=== PATIENT | male | born 1970 | race Caucasian/White ===

== ENCOUNTER 2024-11-05 21:38 | Emergency (ER) | payer OTHER, SELFPAY ==
--- NOTE | ~2024-11-05 | CT_ITS ---
CLINICAL HISTORY: blunt injury flank CT abdomen and pelvis with contrast Comparison: None Findings: No consolidation or effusion. Unremarkable gallbladder and solid organs. No urolithiasis. No bowel obstruction, pneumoperitoneum, or pneumatosis. sigmoid diverticula are present without diverticulitis. Visualized appendix is normal. No acute fracture. IMPRESSION: No acute findings. This document has been electronically signed by: Joe Randle MD, PHD on 11/06/2024 02:20:45
[2024-11-05 22:02] VITALS: BP 116/83; PULSE 75; RESP 18; TEMP 36.9; O2SAT 97; BMI 26.5
--- NOTE | 2024-11-05 23:03 | ED_ITS ---
HPI - Fall General Chief Complaint: Fall Stated Complaint: Fall at work/ [employer] Time Seen by Provider: 11/05/24 23:03 Source: patient Mode of arrival: ambulatory Limitations: no limitations History of Present Illness ED Provider: HPI Narrative: Apparently patient has slipped on steps yesterday evening and fell backwards hitting 2 x 4 which he broke since then complaining of pain in left lower rib posteriorly which is getting worse today no abdominal pain no nausea no vomiting no hematuria no other injuries has superficial abrasions right 3rd and 4th finger from the fall Related Data Previous Rx's ?Medication ?Instructions ?Recorded cephalexin 500 mg capsule 500 mg PO QID 10 days #40 caps 11/06/24 mupirocin 2 % topical ointment 1 appl topical BID #15 grams 11/06/24 oxycodone 5 mg tablet 5 mg PO Q6H PRN pain #20 tabs 11/06/24 Allergies Allergy/AdvReac Type Severity Reaction Status Date / Time aspirin [ASPIRIN] Allergy Unknown DIFF Verified 11/05/24 22:06 BREATHING ibuprofen [IBUPROFEN] Allergy Unknown DIFF Verified 11/05/24 22:06 BREATHING naproxen [NAPROXEN] Allergy Unknown DIFF Verified 11/05/24 22:06 BREATHING Review of Systems 2 Review of Systems: Yes all other systems are reviewed and are negative PMFSH Social History Social History Smoked in Last 30 Days: No Use of substances other than those prescribed or required for medical reasons: No Advance Directives: No Advance Directives Information Provided: Yes Do you have a plan to hurt others: No Plan Physical Exam 2 Vital Signs: Vital Signs: Last Vital Signs Temp 99.0 F 11/06/24 04:04 Pulse 82 11/06/24 04:04 Resp 12 11/06/24 04:04 BP 117/76 11/06/24 04:04 Pulse Ox 92 11/06/24 04:04 O2 Del Method Room Air 11/06/24 04:04 BMI result Body Mass Index 26.5 Appearance: Alert. Oriented X3. No acute distress. Eyes: No pallor or ENT: Pharynx normal. Oral Mucosa moist Neck: Normal inspection. Neck supple. CVS: Normal heart rate and rhythm. Pulses normal. Respiratory: No respiratory distress. Equal air entry bilateral, no wheezing/rales/rhonchi tenderness left lower ribs+ posteriorly Abdomen: Soft and nontender. Bowel sounds are present, no mass palpable, left CVA tenderness ++ Skin: Skin warm and dry. Normal skin color. Normal skin turgor. Extremities: No lower extremity edema. No calf tenderness right 2nd and 3rd finger with superficial abrasion and flap laceration Neuro: Oriented X 3. No motor deficit. No sensory deficit.No cerebellar signs , cranial nerves II-XII intact Medications Administered Discontinued Medications Generic Name Dose Route Start Last Admin Trade Name Efrenq PRN Reason Stop Dose Admin Bacitracin 1 appl 11/06/24 03:10 11/06/24 03:27 Bacitracin Oint 0.9 Gm Packet TOPICAL 11/06/24 03:11 1 appl ONCE ONE Administration Protocol Cephalexin HCl 500 mg 11/06/24 03:11 11/06/24 03:27 Cephalexin 500 Mg Capsule PO 11/06/24 03:12 500 mg ONCE ONE Administration Diphtheria/Tetanus/Acell Pertussis 0.5 ml 11/06/24 03:17 11/06/24 03:27 Diphth,Pertus(Acell),Tet Adult 0.5 Ml Syringe IM 11/06/24 03:18 0.5 ml .ONCE ONE Administration Iohexol 85 ml 11/06/24 01:00 11/06/24 01:01 Iohexol 350 Mg/Ml 100 Ml Infus..Btl IV 11/06/24 01:01 85 ml ONCE ONE Administration Oxycodone HCl 10 mg 11/06/24 03:10 11/06/24 03:27 Oxycodone Hcl Immed Release 5 Mg Tablet PO 11/06/24 03:11 10 mg ONCE ONE Administration Medical Decision Making Medical Decision Making [facility] Narrative: Patient is status post fall with tenderness left lower ribs posteriorly clinically patient has a rib fracture will do CT abdomen to rule out splenic hematoma CT scan of the abdomen negative for acute likely patient has left lower rib contusion without internal injuries will give pain medications also patient has wound on the right 2nd and 3rd finger with cleaned bacitracin ointment applied will give prophylactic antibiotic Lab Data [facility] Lab Attestation statement: I reviewed the patient's lab results. 11/05/24 23:24 11/05/24 23:24 Labs: Lab Results 04/01/25 Range/Units 23:24 WBC 5.9 (4.8-10.8) X10*3/uL RBC 4.28 L (4.60-5.80) X10*6/uL Hgb 14.3 (14.0-18.0) g/dl Hct 41.5 L (42.0-52.0) % MCV 97.0 (80.0-98.0) fL MCH 33.4 H (27.0-33.0) pg MCHC 34.5 (31.0-36.0) g/dl RDW 11.5 (11.0-16.0) % Plt Count 241 (160-400) X10*3/uL MPV 8.8 L (9.4-12.4) fL Immature Gran % (Auto) 0.2 (0.0-0.4) % Neut % (Auto) 50.1 (45-73) % Lymph % (Auto) 30.2 (20-40) % [place] % (Auto) 13.7 H (2-11) % Eos % (Auto) 5.1 H (0-4) % Baso % (Auto) 0.7 (0-2) % Lymph # (Auto) 1.8 (1.2-4.9) X10*3/uL [place] # (Auto) 0.8 (0.1-1.2) X10*3/uL Eos # (Auto) 0.3 (0.0-0.4) X10*3/uL Baso # (Auto) 0.0 (0.0-0.2) X10*3/uL Abs Immat Gran (auto) 0.01 (0.00-0.03) X10*3/uL Absolute Neuts (auto) 2.9 (2.0-8.3) x10*3/uL Absolute Nucleated RBC 0.000 (0.0-0.012) X10*3/uL Nucleated RBC % (auto) 0.0 (0.0-0.2) /100WBC PT 11.1 (10.9-12.4) SEC INR 1.0 (0.9-1.1) Sodium 140 (135-145) mmol/L Potassium 3.8 (3.3-5.1) mmol/L Chloride 108 (96-108) mmol/L Carbon Dioxide 26 (22-29) mmol/L Anion Gap 10 L (12-20) BUN 10 (9-16) mg/dL Creatinine 0.80 (0.5-1.4) mg/dL Estim Creat Clear Calc 112.4 Estimated GFR > 60 Random Glucose 118 H (60-115) mg/dL Calcium 9.2 (8.4-10.2) mg/dL Total Bilirubin 0.2 (0.0-1.0) mg/dL AST 23 (5-37) U/L ALT 23 (0-40) U/L Alkaline Phosphatase 71 (39-117) U/L Total Protein 6.6 (6.5-8.0) g/dL Albumin 3.8 (3.5-5.0) g/dL Independent Interpretation I performed an independent interpretation of an: CT Scan Interpretation: No acute Radiology Impression Discussion of test interpretation with radiology: I have reviewed the radiologist's reading. Discharge Plan Discharge Clinical Impression: Contusion of rib on left side, Acute post-traumatic wound infection Patient Disposition: Home, Self-Care Instructions: Wound Infection (ED), Rib Contusion (ED) Additional Instructions: You have left lower rib contusion no internal injury or fracture was seen Local care of the wound on right hand as advised Antibiotic as advised for wound infection Pain medication as prescribed Report to the ER if increasing shortness a breath/worsening of the pain Prescriptions: New cephalexin 500 mg capsule 500 mg PO QID 10 Days Qty: 40 0RF oxycodone 5 mg tablet 5 mg PO Q6H PRN (Reason: pain) Qty: 20 0RF Rx Instructions: Partial Fill upon patient request. mupirocin 2 % ointment 1 appl topical BID Qty: 15 0RF Interventions: ED Discharge Assessment Last Done: 11/06/24 04:04 Discharge Date/Time: 11/06/24 04:05 Print Language: Sami
[2024-11-05 23:28] LABS: MANUAL DIFF FLAG NO
[2024-11-05 23:31] LABS: Basophils Percent Auto 0.7 % (0-2); Eosinophils Absolute Auto 0.3 X10*3/uL (0.0-0.4); Eosinophils Percent Auto 5.1 % (0-4); Hematocrit 41.5 % (42.0-52.0); Hemoglobin 14.3 g/dl (14.0-18.0); Imm Gran Abs Auto 0.01 X10*3/uL (0.00-0.03); Imm Gran Pct Auto 0.2 % (0.0-0.4); Lymphocytes Absolute Auto 1.8 X10*3/uL (1.2-4.9); Lymphocytes Percent Auto 30.2 % (20-40); Mean Corpuscular HGB Conc 34.5 g/dl (31.0-36.0); Mean Corpuscular Hemoglobin 33.4 pg (27.0-33.0); Mean Platelet Volume 8.8 fL (9.4-12.4); Monocytes Absolute Auto 0.8 X10*3/uL (0.1-1.2); Monocytes Percent Auto 13.7 % (2-11); Neutrophils Absolute Auto 2.9 x10*3/uL (2.0-8.3); Neutrophils Percent Auto 50.1 % (45-73); Platelet Count 241 X10*3/uL (160-400); Red Blood Count 4.28 X10*6/uL (4.60-5.80); Red Cell Distribution Width 11.5 % (11.0-16.0); White Blood Count 5.9 X10*3/uL (4.8-10.8)
[2024-11-05 23:42] LABS: Prothrombin Time 11.1 SEC (10.9-12.4)
[2024-11-05 23:59] LABS: Alanine Aminotransferase 23 U/L (0-40); Albumin Level 3.8 g/dL (3.5-5.0); Alkaline Phosphatase 71 U/L (39-117); Anion Gap 10 (12-20); Aspartate Amino Transferase 23 U/L (5-37); Bilirubin Total 0.2 mg/dL (0.0-1.0); Blood Urea Nitrogen 10 mg/dL (9-16); Calcium 9.2 mg/dL (8.4-10.2); Carbon Dioxide 26 mmol/L (22-29); Chloride 108 mmol/L (96-108); Creatinine Clr Calc Pharmacy 112.4; Estimated Glomerular Filt Rate > 60; Glucose Random 118 mg/dL (60-115); Potassium 3.8 mmol/L (3.3-5.1); Sodium 140 mmol/L (135-145); Total Protein 6.6 g/dL (6.5-8.0)
[2024-11-06 00:46] VITALS: BP 153/81; PULSE 67; RESP 16; TEMP 36.7; O2SAT 98
[2024-11-06] MEDS: iohexoL 350 MG/ML 100 ML INFUS..BTL 85 ML IV (01:01)
[2024-11-06 02:10] VITALS: BP 117/76; PULSE 82; RESP 12; TEMP 37.2; O2SAT 92
--- OUTSIDE RECORDS SUMMARY | 2024-11-06 02:52 | XMS_ITS | Data Portability ---
Author Organization [place] [facility], Allergy Address [address] [place] [phone] Care Team Providers Care Supervisor Filling And Packing Name Role Phone MONIQUE YEN Primary Care Provider Assessment Encounter Date Assessment Date Assessment LastModified by Organization Details LastModified Time 03/04/2024 03/04/2024 Overall patient doing well with Dupixent. No evidence of recurrent polyps. Asthma under control. He will continue with injections every 3 weeks and follow-up with me in 6 months cindy Not available 03/04/2024 15:55:41 Plan of Treatment Reminders Order Date Submit Date Provider Last Modified By Organization Details Last Modified Time Details Appointments None record ed. Lab None record ed. Referral None record ed. Procedures None record ed. Surgeries None record ed. Imaging None record ed. Medication Orders None record ed. Patient TargetsNo targets recorded. Patient InstructionsNo instructions recorded. Reason for Referral None Reported. Results Created Date Observation Date Name Description Value Unit Range Abnormal Flag Note LastModifiedBy Organization Detail LastModifiedTime 03/27/20 24 01/28/2020 imagi ng/di agnos tic resul t No observ ation record ed. [email or web address] Not Available 05:45:31 Result Notes None recorded. Problems Name Problem SNOMED Code Status Onset Date Resolution Date Notes Provider Name and Address Organization Details Recorded Time Epistaxis Active 2015 Epistaxis ; Note: Date Diagnosed : 05/13/2015 8:41 AM () Not Available [facility] 4 02:57:22 Disorder of nasal sinus 6943458 Active 2015 Perforati on of nasal septum NOS; Note: Date Diagnosed : 07/13/2016 1:42 PM (J34.89) Not Available [facility] 4 02:57:19 Disorder of the nose 09861410 Active 2015 Perforati on of nasal septum NOS; Note: Date Diagnosed : 07/13/2016 1:42 PM (J34.89) Not Available [facility] 4 02:57:19 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; Note: Date Diagnosed : 11/22/2016 3:24 PM (J33.1) Not Available [facility] 4 02:57:19 Long-term current use of anticoagu 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; Note: Date Diagnosed : 05/13/2015 8:42 AM () Not Available [facility] 4 02:57:21 Chronic pansinusi tis 49567895 Active 2016 Chronic pansinusi tis; Note: Date Diagnosed : 11/22/2016 3:24 PM (J32.4) Not Available [facility] 4 02:57:21 Acute serous otitis media of left ear 65194908367 90540 Active 2019 Acute serous otitis media, left ear; Note: Date Diagnosed : 12/16/2019 11:37 AM (H65.02) Not Available [facility] 4 02:57:22 Uncomplic ated moderate persisten t asthma 639689408 Active 2016 Moderate persisten t asthma, uncomplic ated; Note: Date Diagnosed : 03/01/2017 11:08 AM (J45.40) Not Available [facility] 4 02:57:18 Deviated nasal septum 356271295 Active 2015 Deviated nasal septum; Note: Date Diagnosed : 07/13/2016 1:42 PM (J34.2) Not Available [facility] 4 02:57:18 Abnormal auditory perceptio n 23688416 Active 2016 Other abnormal auditory perceptio ns, bilateral ; Note: Date Diagnosed : 05/03/2017 11:31 AM (H93.293) Not Available [facility] 4 02:57:20 Allergy to drug 469684032 Active 2015 Allergy status to analgesic agent status; CMS Risk: moderate risk Note : Date Diagnosed : 05/13/2015 8:43 AM (Z88.6) Not Available [facility] 4 02:57:20 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 343009290 Active 2015 Coagulati on defects: Other hemorrhag ic disorder due to intrinsic circulati ng anticoagu lants, antibodie s, or inhibitor s; Note: Date Diagnosed : 05/13/2015 8:41 AM () Not Available [facility] 4 02:57:19 Chronic rhinitis 57578555 Active 2016 Rhinitis, chronic; Note: Date Diagnosed : 12/07/2016 9:31 AM (472.0) Not Available [facility] 4 02:57:22 Chronic tonsillit is 04391110 Active 2013 Tonsillit is, chronic; CMS Risk: low risk CMS Treatment : new problem (to examiner) : no additiona l workup planned N ote: Date Diagnosed : 4 5:08 PM (474.00) Not Available [facility] 4 02:57:17 Bleeding from nose 287590851 Active 2015 Epistaxis ; Note: Date Diagnosed : 05/13/2015 8:42 AM () Not Available [facility] 4 02:57:17 Sensorine ural hearing loss of bilateral ears 197250663 Active 2016 Sensorine ural hearing loss, bilateral ; Note: Date Diagnosed : 05/03/2017 12:24 PM (H90.3) Not Available [facility] 4 02:57:18 Polyp of nasal cavity 400999895 Active 2015 Polyp of nasal cavity; Note: Date Diagnosed : 07/13/2016 1:42 PM (J33.0) Not Available [facility] 4 02:57:20 Disorder of respirato ry system 34930333 Active 2015 Respirato ry condition s due to other specified external agents; CMS Risk: moderate risk Note : Date Diagnosed : 05/13/2015 8:43 AM (J70.8) Not Available [facility] 4 02:57:19 Follow-up visit Active 2016 Encounter for follow-up examinati on after completed treatment for condition s other than malignant neoplasm; Note: Date Diagnosed : 11/25/2016 12:04 PM (Z09) Not Available [facility] 4 02:57:21 Polyp of nasal cavity and/or nasal sinus 148649124 Active 2023 RINKU MORENO MD [address] [facility] [place], [place], [address] , [facility] - [facility] 4 15:55:14 Moderate persisten t asthma 979805934 Active 2023 RINKU MORENO MD [address], [place], [address] , [place] - [facility] 4 15:55:14 Notes:Nasal septal perforati on, non-traumatic (478.1) CMS Risk: low risk CMS Treatment: new problem (to examiner): no additional workup planned Note: Date Diagnosed: 06/04/2014 5:08 PM (478.1) CMS Risk: low risk CMS Treatment: new problem (to examiner): no additional workup planned CMS Risk: low risk CMS Treatment: new problem (to examiner): no additional workup planned CMS Risk: low risk CMS Treatment: new problem (to examiner): no additional workup planned Note: Date Diagnosed: 06/04/2014 5:08 PM (478.1) Problem Notes None recorded. Procedures Surgical History Date Name Laterality Status Provider Name and Address Organization Details Recorded Time 4 JMSNasal/Sinu s Endoscopy-[facility] OR surgical cavities completed RINKU FLORES MD [address] [facility] [place], [place], [address], [facility] [place] 03/04/2024 15:50:48 Imaging Results Imaging Date Name Status LastModified by [facility] Details LastModified Time 01/28/2020 imaging/diag nostic result completed [email or web address] Information not available 03/27/2024 05:45:31 Procedure Notes None recorded. Medical Equipment None Reported. Allergies Allergen ID Allergen Name Allergen Category Reaction Reaction Severity Criticality Documentation Date Start Date Code Code System Note Provider Name and Address Organization Details Recorded Time 580940 aspirin medicatio n other Not available Not available 12/19/2023 1191 RxNorm React ion: unkno wn, unspe cifie d;; Not Available [facility] 4 01:17:03 825606 ibuprofen medicatio n other Not available Not available 12/19/2023 5640 RxNorm React ion: unkno wn, unspe cifie d;; Not Available [facility] 4 01:17:04 998346 naproxen medicatio n other Not available Not available 12/19/2023 7258 RxNorm React ion: unkno wn, unspe cifie d;; Not Available [facility] 4 01:17:05 Medications Name Sig Start Date Stop Date Status Note LastModified by Organization Details LastModified Time Prescript ion - Prior Authoriza tion Request active Script Copy/Bandar or Auth^Scr ipt Copy/Bandar or Auth_ [id number] Not Available Not Available Not Available amoxicill in 500 mg capsule TAKE 1 CAPSULE BY MOUTH THREE TIMES A DAY UNTIL FINISHED active Not Available Not Available No t Available budesonid e 32 mcg/actua tion nasal spray 2 spray into both nostrils 2019 active Medicati on ID: [id number] D uration Value: 30 Prescri bed By Name: Miley Broderick nd Name: rivera Figueroa Method: E-Prescr ibed Sub s Allowed: subs OK Medic ationGen ericName : budesoni de Not Available Not Available Not Available Qvar 80 mcg/actua tion Metered Aerosol oral inhaler 03/01 completed Medicati on ID: [id number] D uration Value: 29 Brand Name: Qvar Sen d Method: E-Prescr ibed Sub s Allowed: subs OK Speci al Instruct ion: INHALE 1 PUFF INTO THE LUNGS TWICE A DAY Medi cationGe nericNam e: Qvar Not Available Not Available Not Available atorvasta tin 10 mg tablet TAKE 1 TABLET BY MOUTH EVERY DAY active Not Available Not Available No t Available valacyclo vir 1 gram tablet TAKE 1 TABLET BY MOUTH EVERY DAY active Not Available Not Available No t Available clarithro mycin 500 mg tablet 1 tablet by mouth 03/01 completed Medicati on ID: [id number] P rescribe d By Name: Miley Broderick nd Name: Biaxin XL Send Method: E-Prescr ibed Sub s Allowed: subs OK Medic ationGen ericName : Biaxin XL Not Available Not Available Not Available hydrocodo ne 5 mg-acetam inophen 325 mg tablet TAKE 1 TABLET BY MOUTH EVERY 6 HOURS NEEDED FOR PAIN active Not Available Not Available No t Available prednison e 20 mg tablet 2 tablet by mouth 2019 active Medicati on ID: [id number] D uration Value: 3 Prescri bed By Name: Miley Broderick nd Name: predniso ne Send Method: E-Prescr ibed Sub s Allowed: subs OK Speci al Instruct ion: 2 tabs daily for 5 days Med icationG enericNa me: predniso ne Not Available Not Available Not Available trazodone 100 mg tablet active Medicati on ID: [id number] B rand Name: trazodon e Send Method: E-Prescr ibed Sub s Allowed: subs OK Speci al Instruct ion: TAKE 1 TABLET BY MOUTH EVERY NIGHT AT BEDTIME. Medicat ionGener icName: trazodon e Not Available Not Available Not Available lorazepam 2 mg tablet 03/15 completed Medicati on ID: [id number] Br and Name: lorazepa m Send Method: E-Prescr ibed Sub s Allowed: subs OK Medic ationGen ericName : lorazepa m Not Available Not Available Not Available trazodone 150 mg tablet TAKE 1 TABLET BY MOUTH EVERYDAY AT BEDTIME active Not Available Not Available No t Available dapsone 25 mg tablet TAKE 1 TABLET BY MOUTH EVERY DAY active Not Available Not Available No t Available betametha sone dipropion ate 0.05 % topical cream APPLY AFFECTED AREAS OF THE ARMS AND LEGS TWICE DAILY FOR 2 WEEKS ON, 1 WEEK OFF, REPEAT NEEDED. active Not Available Not Available No t Available budesonid e 0.5 mg/2 mL suspensio n for nebulizat ion 1 vial 2016 active Medicati on ID: [id number] D uration Value: 90 Prescri bed By Name: Miley Broderick nd Name: budclaudio de Send Method: E-Prescr ibed Sub s Allowed: subs OK Speci al Instruct ion: use 1 vial each nostril twice daily Me dication GenericN colt: budesoni de Not Available Not Available Not Available monteluka st 10 mg tablet TAKE 1 TABLET BY MOUTH EVERY NIGHT AT BEDTIME. active Not Available Not Available No t Available mirtazapi ne 15 mg tablet 09/04 completed Medicati on ID: [id number] B rand Name: mirtazap ine Send Method: E-Prescr ibed Sub s Allowed: subs OK Speci al Instruct ion: TAKE 1 TABLET BY MOUTH EVERYDAY AT BEDTIME Medicati onGeneri cName: mirtazap ine Not Available Not Available Not Available fluticaso ne propionat e 50 mcg/actua tion nasal spray,gaby pension 2 puff into both nostrils 2016 active Medicati on ID: [id number] D uration Value: 30 Prescri bed By Name: ALEJANDRO Giordano nd Name: fluticas one Send Method: E-Prescr ibed Sub s Allowed: subs OK Medic ationGen ericName : fluticas one Not Available Not Available Not Available doxycycli ne hyclate 100 mg tablet TAKE 2 TABLETS BY MOUTH ONCE active Not Available Not Available No t Available escitalop warren 10 mg tablet TAKE 1 TABLET BY MOUTH EVERY DAY active Not Available Not Available No t Available Prilosec OTC 20 mg tablet,de layed release 09/04 completed Medicati on ID: [id number] B rand Name: Prilosec OTC Send Method: E-Prescr ibed Sub s Allowed: subs OK Medic ationGen ericName : Prilosec OTC Not Available Not Available Not Available bupropion HCl XL 300 mg 24 hr tablet, extended release TAKE 1/2 TABLET BY MOUTH DAILY FOR 8 DAYS, THEN INCREASE TO 1 FULL TABLET DAILY AND CONTINUE . active Not Available Not Available No t Available chlorhexi dine gluconate 0.12 % mouthwash SWISH AND SPIT WITH 10 ML 3 TIMES A DAY active Not Available Not Available No t Available prednison e 2016 active Medicati on ID: [id number] D uration Value: 10 Prescri bed By Name: Miley Broderick nd Name: predniso ne Send Method: E-Prescr ibed Sub s Allowed: subs OK Speci al Instruct ion: takes 3 tablets daily for 3 days, 2 tablets daily for 3 daysand 1 tablet daily for 3 days Med icationG enericNa me: predniso ne Not Available Not Available Not Available B Complex Plus Vitamin C 15 mg-10 mg-50 mg-5 mg-300 mg capsule 2013 active Medicati on ID: [id number] Br and Name: B Complex Plus Vitamin C Send Method: E-Prescr ibed Sub s Allowed: subs OK Medic ationGen ericName : B Complex Plus Vitamin C Not Available Not Available Not Available ProAir HFA 90 mcg/actua tion aerosol inhaler 2016 active Medicati on ID: [id number] D uration Value: 16 Brand Name: ProAir HFA Send Method: E-Prescr ibed Sub s Allowed: subs OK Speci al Instruct ion: INHALE 2 PUFFS BY MOUTH EVERY 4 HOURS Me dication GenericN colt: ProAir HFA Not Available Not Available Not Available Symbicort 160 mcg-4.5 mcg/actua tion HFA aerosol inhaler TAKE 2 PUFFS BY MOUTH TWICE A DAY active Not Available Not Available No t Available Oxaydo 5 mg tablet,or al ONLY (not feeding tubes) 1 tablet by mouth 2016 active Medicati on ID: [id number] D uration Value: 3 Prescri bed By Name: Miley Broderick nd Name: Oxaydo S end Method: E-Prescr ibed Sub s Allowed: subs OK Medic ationGen ericName : Oxaydo Not Available Not Available Not Available Dupixent 300 mg/2 mL subcutane ous syringe INJECT 300MG SUBCUTAN EOUSLY EVERY OTHER WEEK 2023 active Not Available Not Available Not Avai lable Vitals Date Recorded Body height Body mass index (BMI) Body weight Provider Name and Address Organization Details Last Updated DateTime 03/04/2024 180.34 cm 26.6 kg/m2 41831.14 g [place] [facility] 03/04/2024 15:40:22 Social History None recorded. Functional Status None recorded. Mental Status None recorded. Family History Nothing Reported. Medical History Condition Response Allergies/Hayfever Y Nasal or Sinus Problems Y Nasal polyps Y Asthma Y Past Encounters Encounter ID Performer Location Encounter Start Date Encounter Closed Date Diagnosis/Indication Diagnosis SNOMED-CT Code Diagnosis ICD10 Code Diagnosis Note [id number] RINKU MORENO MD [facility] [address] [address] 03/04/2024 15:36:50 03/04/2024 15:57:56 Allergy to drug 518101013 Z88.6 Polyp of n iam cavity and/or nasal sinus 950171258 J33.1 Moderate p ersistent asthma 604848813 J45.40 Disorder o f respiratory system 67817478 J70.8 Health Concerns Section Related Observation LastModified by Organization Detai ls LastModified Time None Recorded Concern Status LastModified by Organization Details LastModified Time None Recorded Advance Directives Directive None Recorded Payers Encounter Date Sequence Insurance Name Policy Number Policy Edmondson Covered Member ID Edmondson Member ID Guarantor Name 03/04/2024 1 [facility] (MEDICAID REPLACEMENT - O) [id number] Sudhir Marino [id number] Sudhir Marino Notes Date Note Type Note Provider Name and Address Organization Details Recorded Time 03/04/2024 text/html Patient with his tory of aspirin exacerbated respiratory disease. They {{have have not*}} undergone aspirin desensitization. They {{are are not*}} presently taking{{325 mg of 650 mg of 975mg of 1350mg of}} aspirin daily. They are presently using {{topical budesonide irrigations enhanced delivery fluticasone standard fluticasone intranas al steroids Dupixent q 3 weeks#}}. They are taking a {{leukotriene modifier* long-actin g beta agonist with inhaled corticosteroid inhal ed corticosteroid for asthma}} and a {{leukotriene modifier long-acting beta agonist with inhaled corticosteroid inhal ed corticosteroid for asthma no inhalers#}} < >They {{have* have not}} previously undergone endoscopic sinus surgery {{once* twice multip le procedures}}. < >Presently {{the are are not*}} experiencing asthma symptoms < > Their sense of smell is {{normal abnormal*}} . < > They {{are* are not}} presently taking biologic therapy {{Dupixent Nucal Fas enra Xolair}} RINKU FLORES MD [address] [place] [address], [place], [address], [facility] - [facility] 03/04/2024 15:56:13
[2024-11-06] MEDS: Bacitracin Oint 0.9 GM PACKET 1 APPL TOPICAL (03:27)
[2024-11-06] MEDS: oxyCODONE HCl Immed Release 5 MG TABLET 10 MG PO (03:27)
[2024-11-06] MEDS: cephALEXin 500 MG CAPSULE PO (03:27)
[2024-11-06] MEDS: Diphth,Pertus(ACell),Tet Adult 0.5 ML SYRINGE IM (03:27)
[2024-11-06 04:04] VITALS: BP 117/76; PULSE 82; RESP 12; TEMP 37.2; O2SAT 92
== END 2024-11-06 04:05 | disposition home or self-care (01) ==
PROVIDERS: Emergency Provider Internal Medicine; PCP Internal Medicine
DX: S20.212A Contusion of left front wall of thorax, initial encounter (principal); S60.512A Abrasion of left hand, initial encounter; S60.511A Abrasion of right hand, initial encounter; Z23 Encounter for immunization; X58.XXXA Exposure to other specified factors, initial encounter; R07.81 Pleurodynia; Y93.9 Activity, unspecified; Y92.9 Unspecified place or not applicable; Y99.8 Other external cause status; R10.2 Pelvic and perineal pain
CPT/HCPCS: 36415; 74177; 80053; 85025; 85610; 90471; 90715; 99284; Q9967

== ENCOUNTER → 2024-11-06 | Outpatient (BNV) | payer OTHER, SELFPAY | PROVIDERS: Emergency Provider Internal Medicine; PCP Internal Medicine; Visit Provider General Practice | DX: S39.91XA Unspecified injury of abdomen, initial encounter (principal) | CPT/HCPCS: 74177 ==